=== PATIENT | female | born 1950 | race Caucasian/White ===

== ENCOUNTER 2016-06-27 09:40 | Day surgery (SDC) | payer OTHER ==
--- NOTE | ~2016-06-27 | EGD ---
EGD REPORT [facility] [address] [id number] NAME: PERLA RIVERA : 54 STATUS : REG [facility]#: [id number] AGE: 65 ADM/REG DATE : 06/27/16 MR#: [id number] REPORT SERV DATE: 06/27/16 DICTATED BY: DESMOND SHELL DATE: 06/27/16 REPORT STATUS : Draft TRANSCRIBED BY: [facility] DATE: 06/27/16 Pulmonology Patient Name: Perla Rivera. Procedure Date: 06/27/2016 12:16 PM Date of : 1950 Attending MD: KY SHELL MD Procedure Date No Time: 06/27/2016 Procedure: EBUS/LATESHA BRONCH Indications: Enlarging RLL consolidation, history of early stage adenocarcinoma s/p SBRT Providers: KY SHELL MD Referring MD: Chava Ferguson Medicines: Lidocaine 2% 20 mL Complications: No immediate complications Procedure: Pre-Anesthesia Assessment: - ASA Grade Assessment: III - A patient with severe systemic disease. - After reviewing the risks and benefits, the patient was deemed in satisfactory condition to undergo the procedure. - A History and Physical has been performed. Patient meds and allergies have been reviewed. The risks and benefits of the procedure and the sedation options and risks were discussed with the patient. All questions were answered and informed consent was obtained. Patient identification and proposed procedure were verified prior to the procedure by the physician and the nurse in the pre-procedure area in the procedure room. Mental Status Examination: alert and oriented. Respiratory Examination: clear to auscultation. CV Examination: normal and RRR, no murmurs, no S3 or S4. ASA Grade Assessment: IV - A patient with severe systemic disease that is a constant threat to life. After reviewing the risks and benefits, the patient was deemed in satisfactory condition to undergo the procedure. The anesthesia plan was to use general anesthesia. Immediately prior to administration of medications, the patient was re-assessed for adequacy to receive sedatives. The heart rate, respiratory rate, oxygen saturations, blood pressure, adequacy of pulmonary ventilation, and response to care were monitored throughout the procedure. The physical status of the patient was re-assessed after the procedure. After obtaining informed consent, the BF [id number] was introduced through the mouth, via the endotracheal tube (the patient was intubated for the procedure) and EGD REPORT [address] [address] NAME: PERLA RIVEAR : [birth year] STATUS : REG [facility]#: [id number] AGE: 65 ADM/REG DATE : 06/27/16 MR#: [id number] REPORT SERV DATE: 06/27/16 DICTATED BY: DESMOND SHELL DATE: 06/27/16 REPORT STATUS : Draft TRANSCRIBED BY: [facility] DATE: 06/27/16 advanced to the tracheobronchial tree. the Bronchoscope was introduced through the mouth, via the endotracheal tube (the patient was intubated for the procedure) and advanced to the tracheobronchial tree. The procedure was accomplished without difficulty. The patient tolerated the procedure well. Findings: The endotracheal tube is in good position. The visualized portion of the trachea is of normal caliber. The anderson is sharp. The tracheobronchial tree was examined to at least the first subsegmental level. Bronchial mucosa and anatomy are normal; there are no endobronchial lesions, and no secretions. EBUS TBNA of lymph node level 4L x 5 passes for cytology EBUS TBNA of lymph node level 7 x 4 passes for cytology EBUS TBNA of lymph node level 4R x 4passes for cytology EBUS TBNA of lymph node level 11R x 4 passes for cytology Using SuperDimension Edge catheter 180, peripheral probe EBUS 17s, and fluoroscopy, I performed the following biopsies: RLL consolidation transbronchial needle aspirates x 6 passes for cytology RLL consolidation transbronchial brush biopsy x 2 pass for cytology RLL consolidation transbronchial forcep biopsies x 10 passes for histopathology Bronchoalveolar lavage was performed in the right lower lobe of the lung and sent for cell count, cytology, bacterial culture, viral smears \T\ culture, and fungal and AFB analysis. 180 mL of fluid were instilled. 30 mL were returned. The return was blood-tinged and cellular. Impression: Rapid On-Site Evaluation (KAREN): Preliminary cytology is suggestive of a benign lesion. No evidence of malignancy (final results are pending). Recommendation: - Await test results. - Follow up with referring physician. - Follow up with Dr. Fisher Attending Participation: I personally performed the entire procedure. KY SHELL MD 06/27/2016 1:34 PM This report has been signed electronically. Number of Addenda: 0 Note Initiated On: 06/27/2016 12:16 PM [address] [id number]
--- NOTE | ~2016-06-27 | CN ---
Consultation Report [place] [id number] [facility] [place]. [address] NAME: PERLA RIVERA : 54 STATUS : REG [facility]#: [id number] AGE: 65 ADM/REG DATE : 06/27/16 MR#: [id number] REPORT SERV DATE: 06/27/16 DICTATED BY: ÁNGEL SHELL DATE: 06/27/16 REPORT STATUS : Draft TRANSCRIBED BY: MODL DATE: 06/27/16 CONSULTATION DATE OF CONSULTATION: Dear Dr. Ramírez and Dr. Veronica: Thank you for requesting my opinion regarding evaluation and management of Ms. Perla Rivera's right lower lobe posterior medial consolidation and mediastinal lymphadenopathy. Ms. Rivera is an extremely pleasant 65-year-old female with a significant past medical history of stage IB right lower lobe non-small cell lung cancer, status post SBRT to [address] Veronica, who re-presented to Dr. Ramírez and Dr. Veronica with repeat surveillance imaging. The patient states that, she has had no significant changes in her respiratory symptoms other than scant hemoptysis. She continues to have sharp right-sided rib cage pain, but denies any fevers, chills, night sweats, nausea, vomiting, diarrhea, or constipation. She does have some mild exertional dyspnea well localized to the chest, nonradiating with no significant alleviating or exacerbating factors. She does not have any shortness of breath at rest. REVIEW OF SYSTEMS: A detailed 14-point review of systems was completed. Pertinent positives and negatives are listed above. PAST MEDICAL HISTORY: 1. Stage IB right lower lobe non-small cell lung cancer. 2. Coronary artery disease. 3. Scarlet fever. 4. History of tobacco abuse. 5. COPD. 6. Arthritis. PAST SURGICAL HISTORY: As above. SOCIAL HISTORY: The patient is . She no longer smokes, but smoked two packs per day for forty years. She has no history of drinking alcohol or illicit drug abuse. FAMILY HISTORY: Dementia. ALLERGIES: NO KNOWN DRUG ALLERGIES. HOME MEDICATIONS: Reviewed and located in the paper chart. PHYSICAL EXAMINATION: VITAL SIGNS: Reviewed and located in the paper chart. GENERAL: Morbidly obese, white female, chronically ill appearing. Consultation Report [place] [id number] [facility] [place]. [address] NAME: PERLA RIVERA : 54 STATUS : REG [facility] [place] PAT#: [id number] AGE: 65 ADM/REG DATE : 06/27/16 MR#: [id number] REPORT SERV DATE: 06/27/16 DICTATED BY: ÁNGEL SHELL DATE: 06/27/16 REPORT STATUS : Draft TRANSCRIBED BY: MODL DATE: 06/27/16 HEENT: Normocephalic, atraumatic. Pupils are equal, round, and reactive to light and accommodation. Posterior oropharynx is clear. NECK: No JVD. No LAD. Trachea midline. CARDIOVASCULAR: Regular rate and rhythm. S1 and S2 present. LUNGS: Clear to auscultation bilaterally. ABDOMEN: Nontender, nondistended. Soft. Positive bowel sounds. EXTREMITIES: No clubbing, cyanosis, or edema. SKIN: No new rashes, lesions, or ulcers. PSYCHIATRIC: Alert and oriented x3. Appropriate mood and affect. Appropriate insight and judgment. NEUROLOGIC: 5/5 strength in upper and lower extremities. Cranial nerves II through XII intact. Gait not tested. DTRs not performed. IMAGING PROCEDURE: 1. PET-CT scan performed at [facility] on 06/16/2016 was personally reviewed by me and I agree with the following interpretation, enlargement of combination of mass, atelectasis, and inflammatory changes involving the posterior and medial aspect of the right lower lobe, probable metastases to the right paratracheal and subcarinal lymph nodes. No new lung lesions. There is an 11 mm FDG avid mass in the inferomedial aspect of the left breast of unknown etiology. 2. Stable cysts in both kidneys and diverticulosis of the descending and sigmoid colon, also stable fibroadenoma of the left side of the uterus. ASSESSMENT AND PLAN: Ms. Perla Rivrea is an extremely pleasant 65-year-old female with a significant past medical history of stage IB, T2a N0 M0 right lower lobe lung adenocarcinoma, status post SBRT. The patient's PET-CT scan on 06/16/2016 demonstrated enlargement of a combination of mass atelectasis and inflammatory changes as well as local regional distribution of FDG avid and mediastinal lymph nodes, highly suspicious for a pneumonic ISABEL or an occult inflammatory process such as radiation injury organizing pneumonia. At this point, Dr. Ramírez, and Dr. Veronica, would like to have EBUS bronchoscopy and biopsy to determine the underlying cause of her CT abnormalities. I discussed in detail, potential options with Ms. Rivera including CT-guided needle biopsy, EBUS bronchoscopy, and thoracic surgical intervention. After careful discussion of the risks, benefits, and alternatives to each of these procedures, we agreed to proceed forward with EBUS and navigation bronchoscopy. The patient is aware that the procedure is associated with potential life-threatening risks, including lung collapse, respiratory failure, and even . RECOMMENDATIONS: A summary of my recommendations are as follows: 1. Proceed with EBUS and navigation bronchoscopy. 2. Follow up with Dr. Fisher. 3. Follow up with Dr. Chava Veronica and Dr. Carlos Ramírez. Thank you for allowing me to participate in Ms. Rivera's care. Consultation Report [address] [address] NAME: PERLA RIVERA : 54 STATUS : REG [facility] PAT#: [id number] AGE: 65 ADM/REG DATE : 06/27/16 MR#: [id number] REPORT SERV DATE: 06/27/16 DICTATED BY: ÁNGEL SHELL DATE: 06/27/16 REPORT STATUS : Draft TRANSCRIBED BY: ERIC DATE: 06/27/16 KAY/ERIC Ángel Shell M.D. / [id number] CC: Stacey Hernandez M.D. Jonathan T Whaley, MD Gregory R. Sutton, MD
[~2016-06-27 09:40] MED LIST: ADVAIR230P INH; ASAB PO; COREG6 PO; DSS PO; KLOR-CON M1010 MEQ PO; L20 PO; LIPITOR20 PO; PROTONIX PO; PROTONIX20 MG PO; SPIRIVA INH; VENTOLIN HFA INH; VITAMIN D31000 UNIT PO
[2016-06-27 10:13] LABS: BASOPHILS 0.5 %; BASOPHILS ABSOLUTE 0.03 10/3/uL (0.0-0.16); EOSINOPHILS 2.8 %; EOSINOPHILS ABSOLUTE 0.16 10/3/uL (0.0-0.53); HEMATOCRIT 38.8 % (36.0-48.0); HEMOGLOBIN 12.5 g/dL (12.0-16.0); IMMATURE GRANULOCYTES 0.2 %; IMMATURE GRANULOCYTES ABSOLUTE 0.01 10/3/uL (0.0-0.11); LYMPHOCYTES 29.5 %; LYMPHOCYTES ABSOLUTE 1.66 10/3/uL (0.67-4.30); MEAN CORPUS HGB CONC 32.2 g/dL (32.0-36.0); MEAN CORPUSCULAR VOLUME 86.8 fL (80-100); MONOCYTES ABSOLUTE 0.45 10/3/uL (0.21-1.20); NEUTROPHILS ABSOLUTE 3.31 10/3/uL (2.02-8.40); PLATELET COUNT 188 10/3/uL (150-400); RBC DISTRIBUTION WIDTH 14.6 % (12.0-16.0); RED CELL COUNT 4.47 10/6/uL (4.0-5.6); WHITE BLOOD CELLS 5.6 10/3/uL (4.5-10.5)
[2016-06-27 10:14] LABS: MANUAL DIFF NO %
[2016-06-27 10:19] LABS: PARTIAL THROMBO TIME 27.6 SEC (22.5-37.2); PROTIME (NOT ORD) 13.5 SEC (12.0-14.5)
[2016-06-27 10:25] LABS: BUN (BLOOD UREA NITROGEN) 13 MG/DL (6-23); CALCIUM, SERUM 9.3 MG/DL (8.5-10.4); CHLORIDE, SERUM 104 MMOL/L (96-112); CO2 (CARBON DIOXIDE) 30 MMOL/L (24-34); CREATININE 0.81 MG/DL (0.55-1.02); GFR AFRICAN AMERICAN 90 ML/MIN (>=60); GFR NON AFRICAN AMERICAN 77 ML/MIN (>=60); POTASSIUM, SERUM 4.5 MMOL/L (3.5-5.3); SODIUM, SERUM 141 MMOL/L (135-148)
[2016-06-27 10:26] LABS: GLUCOSE, SERUM 111 MG/DL (60-99)
[2016-06-27 17:54] LABS: BD FL LYMPH (NOT ORD) 10 %; BD FL SOURCE (NOT ORD) RLL-BAL; BF BASO (NOT OF) 0 %; BF LARGE MONONUCLEAR 38 %; BF TOTAL CELL CT (NOT ORD 407 /MM3; BODY FLUID EOS (NOT ORD) 0 %; BODY FLUID RBC (NOT ORD) 17000 /MM3; BODY FLUID SEG (NOT ORD) 52 %
== END 2016-06-27 23:59 | disposition home or self-care (01) ==
LOC: DMU 09:40
PROVIDERS: Anesthesiology; Internal Medicine
PROC: 07B74ZX Excision of Thorax Lymphatic, Percutaneous Endoscopic Approach, Diagnostic (ICD-10-PCS; principal; 2016-06-27 10:30)
PROC: 0B9F8ZX Drainage of Right Lower Lung Lobe, Via Natural or Artificial Opening Endoscopic, Diagnostic (ICD-10-PCS; 2016-06-27 10:30)
DX: J98.4 Other disorders of lung (principal); I25.10 Atherosclerotic heart disease of native coronary artery without angina pectoris; I25.2 Old myocardial infarction; E78.00 Pure hypercholesterolemia, unspecified; J44.9 Chronic obstructive pulmonary disease, unspecified; K21.9 Gastro-esophageal reflux disease without esophagitis; K57.90 Diverticulosis of intestine, part unspecified, without perforation or abscess without bleeding; L40.9 Psoriasis, unspecified; M19.90 Unspecified osteoarthritis, unspecified site; Z95.1 Presence of aortocoronary bypass graft; Z85.118 Personal history of other malignant neoplasm of bronchus and lung; Z87.891 Personal history of nicotine dependence; Z92.3 Personal history of irradiation; Z79.51 Long term (current) use of inhaled steroids; Z79.82 Long term (current) use of aspirin; Z79.899 Other long term (current) drug therapy; Z98.890 Other specified postprocedural states; Z98.51 Tubal ligation status
CPT/HCPCS: 71010; 80048; 85025; 85610; 85730; 87015; 87070; 87102; 87116; 87205; 88112; 88172; 88173; 88305; 88333; 89051; 93005; A9270-GY; C1725; J2405; J2710; J3010